=== PATIENT | male | born 1975 | race African-American/Black ===

== ENCOUNTER 2016-12-04 15:00 | Emergency (ER) | payer SELFPAY ==
[~2016-12-04] VITALS: Ht 177.8 cm; Wt 98.0 kg
[~2016-12-04 15:00] MED LIST: ALUM5LIQ PO; FAMO20 PO; NEXI20CA PO
[2016-12-04 15:17] VITALS: BP 144/80; PULSE 70; RESP 16; TEMP 98.7; O2SAT 99
[2016-12-04 16:25] VITALS: BP 135/83; PULSE 62; RESP 16; O2SAT 100
[2016-12-04] MEDS ORDERED: SODIUM CHLOR 0.9% 1000 ML INJ 1,000 ML IV ONE (16:30)
[2016-12-04] MEDS ORDERED: KETOROLAC TROMETHAMINE 30 MG/ML (IVP) VIAL IV PUSH ONE (16:30)
[2016-12-04] MEDS ORDERED: METOCLOPRAMIDE HCL 10 MG/2 ML VIAL IV PUSH ONE (16:30)
[2016-12-04] MEDS ORDERED: SODIUM CHLORIDE 0.9% FLUSH 5 ML FLUSH IVF PRN (16:30)
[2016-12-04 16:33] VITALS: O2SAT 98
--- NOTE | 2016-12-04 16:37 | PD ---
HPI Chief Complaint: Headache Time Seen by Provider: 16:26 Travel History International Travel<30 days: No Contact w/Intl Traveler<30days: No Traveled to known affect area: No History of Present Illness HPI 41-year-old male with history of GERD, here for evaluation of generalized malaise, lightheadedness, intermittent light headache that is frontal, nausea and vomiting. Emesis has been clear. He denies abdominal pain. No diarrhea. He has been out of his omeprazole for the last several days and is complaining of intermittent burning sensation in his chest. No fevers or chills. No dyspnea. PFSH Past Medical History Hx Anticoagulant Therapy: No Cardiovascular Problems: No Chemotherapy: No Cerebrovascular Accident: No Diabetes: No Diminished Hearing: No GERD: Yes Respiratory: No Immunizations Current: No Social History Alcohol Use: Yes ([facility]) Tobacco Use: No Substance Use: No Allergies-Medications (Allergen,Severity, Reaction): Coded Allergies: Penicillin (Verified Allergy, Mild, HIVES, 07/01/15) Reported Meds & Prescriptions Reported Meds & Active Scripts Active Reported Omeprazole 20 Mg Tab 20 Mg PO DAILY Review of Systems Except as stated in HPI: all other systems reviewed are Neg Physical Exam Narrative GENERAL: Well-developed, well-nourished, comfortable, no acute distress. SKIN: Warm and dry. No rash. No pallor. HEAD: Atraumatic. Normocephalic. EYES: Pupils equal and round. No scleral icterus. No injection or drainage. ENT: Mucous membranes pink and moist. NECK: Trachea midline. No JVD. No nuchal rigidity. CARDIOVASCULAR: Regular rate and rhythm. RESPIRATORY: No accessory muscle use. Clear to auscultation. Breath sounds equal bilaterally. GASTROINTESTINAL: Abdomen soft, non-tender, nondistended. MUSCULOSKELETAL: No obvious deformities. No clubbing. No cyanosis. No edema. NEUROLOGICAL: Awake and alert. No obvious cranial nerve deficits. Motor grossly within normal limits. Normal speech. PSYCHIATRIC: Appropriate mood and affect; insight and judgment normal. Data Data Last Documented VS Vital Signs Date Time Temp Pulse Resp B/P Pulse Ox O2 Delivery O2 Flow Rate FiO2 12/04/16 17:30 62 16 100 Room Air 12/04/16 17:25 132/84 12/04/16 15:17 98.7 Orders Electrocardiogram (12/04/16 16:30) Ckmb (Isoenzyme) Profile (12/04/16 16:30) Complete Blood Count With Diff (12/04/16 16:30) Comprehensive Metabolic Panel (12/04/16 16:30) Magnesium (Mg) (12/04/16 16:30) Prothrombin Time / Inr (Pt) (12/04/16 16:30) Act Partial Throm Time (Ptt) (12/04/16 16:30) Troponin I (12/04/16 16:30) Lipase (12/04/16 16:30) Chest, Single Ap (12/04/16 16:30) Ecg Monitoring (12/04/16 16:30) Iv Access Insert/Monitor (12/04/16 16:30) Oximetry (12/04/16 16:30) Sodium Chloride 0.9% Flush (Ns Flush) (12/04/16 16:30) Ct Brain W/O Iv Contrast(Rout) (12/04/16 ) Sodium Chlor 0.9% 1000 Ml Inj (Ns 1000 M (12/04/16 16:30) Metoclopramide Inj (Reglan Inj) (12/04/16 16:30) Ketorolac Inj (Toradol Inj) (12/04/16 16:30) Influenzae A/B Antigen (12/04/16 16:35) Pantoprazole Inj (Protonix Inj) (12/04/16 16:45) Al-Mag Hy-Si 40-40-4 Mg/Ml Liq (Mag-Al P (12/04/16 16:45) Lidocaine 2% Viscous (Xylocaine 2% Visco (12/04/16 16:45) CKMB (12/04/16 16:41) CKMB% (12/04/16 16:41) Labs Laboratory Tests Test 12/04/16 16:41 White Blood Count 10.2 TH/MM3 Red Blood Count 5.21 MIL/MM3 Hemoglobin 14.8 GM/DL Hematocrit 46.5 % Mean Corpuscular Volume 89.3 FL Mean Corpuscular Hemoglobin 28.4 PG Mean Corpuscular Hemoglobin 31.8 % Concent Red Cell Distribution Width 12.6 % Platelet Count 175 TH/MM3 Mean Platelet Volume 9.5 FL Neutrophils (%) (Auto) 71.2 % Lymphocytes (%) (Auto) 22.3 % Monocytes (%) (Auto) 5.0 % Eosinophils (%) (Auto) 0.6 % Basophils (%) (Auto) 0.9 % Neutrophils # (Auto) 7.2 TH/MM3 Lymphocytes # (Auto) 2.3 TH/MM3 Monocytes # (Auto) 0.5 TH/MM3 Eosinophils # (Auto) 0.1 TH/MM3 Basophils # (Auto) 0.1 TH/MM3 CBC Comment DIFF FINAL Differential Comment Prothrombin Time 11.1 SEC Prothromb Time International 1.0 RATIO Ratio Activated Partial 24.6 SEC Thromboplast Time Sodium Level 139 MEQ/L Potassium Level 4.0 MEQ/L Chloride Level 103 MEQ/L Carbon Dioxide Level 28.0 MEQ/L Anion Gap 8 MEQ/L Blood Urea Nitrogen 15 MG/DL Creatinine 1.10 MG/DL Estimat Glomerular Filtration 89 ML/MIN Rate Random Glucose 95 MG/DL Calcium Level 9.3 MG/DL Magnesium Level 2.1 MG/DL Total Bilirubin 0.3 MG/DL Aspartate Amino Transf 31 U/L (AST/SGOT) Alanine Aminotransferase 42 U/L (ALT/SGPT) Alkaline Phosphatase 46 U/L Total Creatine Kinase 849 U/L Creatine Kinase MB 8.0 NG/ML Creatine Kinase MB % 0.9 % Troponin I LESS THAN 0.02 NG/ML Total Protein 7.9 GM/DL Albumin 4.0 GM/DL Lipase 94 U/L MDM Medical Decision Making Medical Screen Exam Complete: Yes Emergency Medical Condition: Yes Interpretation(s) EKG: Sinus, rate 59, left axis deviation, RVH, no acute ischemic abnormality. Differential Diagnosis Viral illness, gastritis, peptic ulcer disease, GERD, ACS, intracranial abnormality, metabolic abnormality, SAH/meningitis/encephalitis unlikely. Narrative Course Initial vital signs show heart rate 70, blood pressure 144/80, pulse ox 99% on room air, oral temp of 98.7F. CBC is unremarkable CMP is unremarkable. Cardiac enzymes are negative. Total CK is slightly elevated at 849. Lipase is 94. Influenza is negative. CT head: Normal exam. Chest x-ray: Suspected minimal left base atelectasis. The patient was given a liter of normal saline IV, IV Reglan, IV Toradol, GI cocktail, IV Protonix, and is feeling much better. He does not have a headache. I do not suspect SAH/meningitis/encephalitis. He is likely suffering from a viral illness. I do not believe his symptoms are cardiopulmonary in nature either. He is stable for discharge home with outpatient follow-up with his primary care physician this week. He was informed on when to return to the emergency department. He verbalizes understanding and agreement with plan. Diagnosis Primary Impression: Nausea and vomiting Qualified Code: R11.2 - Non-intractable vomiting with nausea, unspecified vomiting type Additional Impression: Malaise Referrals: Primary Care Physician 3 days Additional Instructions: Follow-up with your primary care physician this week. Stay hydrated with plenty of fluids. Return to the emergency room for worsening symptoms or any other concerns. Scripts Pantoprazole (Protonix)40 Mg Tab40 Mg PO DAILY #30 TAB Ref 0 Prov:Sergei Posada MD 12/04/16 Ondansetron Odt (Zofran Odt)4 Mg Tab4 Mg SL Q8HR PRN (Nausea/Vomiting) #20 TAB Ref 0 Prov:Sergei Posada MD 12/04/16 Disposition: 01 DISCHARGE HOME Condition: Stable Sergei Posada MD Dec 04, 2016 16:37
[2016-12-04] MEDS ORDERED: OMEP20TA PO (16:40)
[2016-12-04] MEDS ORDERED: ALUMINUM/MAGNESIUM/SIMETH 30 ML CUP PO ONE (16:45)
[2016-12-04] MEDS ORDERED: PANTOPRAZOLE SODIUM 40 MG VIAL IV PUSH ONE (16:45)
[2016-12-04] MEDS ORDERED: LIDOCAINE VISCOUS 2% SOLN 15 ML UDC PO ONE (16:45)
[2016-12-04 16:54] LABS: AUTOMATED NEUTROPHIL # 7.2 TH/MM3 (1.8-7.7); BASOPHIL # 0.1 TH/MM3 (0-0.2); BASOPHIL % 0.9 % (0.0-2.0); EOSINOPHIL # 0.1 TH/MM3 (0-0.4); EOSINOPHIL % 0.6 % (0.0-4.0); HEMATOCRIT 46.5 % (39.0-51.0); HEMO FLAGS DIFF FINAL; LYMPH % 22.3 % (9.0-44.0); LYMPHOCYTE # 2.3 TH/MM3 (1.0-4.8); MEAN CELL VOLUME 89.3 FL (80.0-100.0); MEAN CORPUSCULAR HEMOGLOBIN 28.4 PG (27.0-34.0); MEAN CORPUSCULAR HGB CONC 31.8 % (32.0-36.0); NEUT % 71.2 % (16.0-70.0); PLATELET COUNT 175 TH/MM3 (150-450); RED BLOOD COUNT 5.21 MIL/MM3 (4.50-5.90); RED CELL DISTRIBUTION WIDTH 12.6 % (11.6-17.2); WHITE BLOOD COUNT 10.2 TH/MM3 (4.0-11.0)
[2016-12-04 17:10] LABS: CHLORIDE 103 MEQ/L (98-107); SODIUM (NA) 139 MEQ/L (136-145)
[2016-12-04 17:12] LABS: APTT (PATIENT) 24.6 SEC (24.3-30.1); PROTHROMBIN TIME - PATIENT 11.1 SEC (9.8-11.6)
[2016-12-04 17:15] LABS: ANION GAP 8 MEQ/L (5-15); BLOOD UREA NITROGEN 15 MG/DL (7-18); MAGNESIUM 2.1 MG/DL (1.5-2.5)
--- NOTE | 2016-12-04 17:17 | RADHPO ---
EXAM DATE/TIME: 12/04/2016 16:53 [facility] COMPARISON: No previous studies available for comparison. INDICATIONS : Cephalgia. Nausea. Weakness. RADIATION DOSE: 62.40 CTDIvol (mGy) MEDICAL HISTORY : None SURGICAL HISTORY : None. ENCOUNTER: Initial ACUITY: 1 day PAIN SCALE: 0/10 LOCATION: cranial TECHNIQUE: Multiple contiguous axial images were obtained of the head. Using automated exposure control and adj ustment of the mA and/or kV according to patient size, radiation dose was kept as low as reasonably a chievable to obtain optimal diagnostic quality images. FINDINGS: CEREBRUM: The ventricles are normal for age. No evidence of midline shift, mass lesion, hemorrhage or acute in farction. No extra-axial fluid collections are seen. POSTERIOR FOSSA: The cerebellum and brainstem are intact. The 4th ventricle is midline. The cerebellopontine angle i s unremarkable. EXTRACRANIAL: The visualized portion of the orbits is intact. SKULL: The calvaria is intact. No evidence of skull fracture. CONCLUSION: Normal examination. Srikanth Allen MD on December 04, 2016 at 17:15 Board Certified Radiologist. This report was verified electronically.
[2016-12-04 17:18] LABS: ALT (GPT) 42 U/L (12-78); AST (GOT) 31 U/L (15-37); GLOMERULAR FILTRATION RATE 89 ML/MIN (>89)
[2016-12-04 17:19] LABS: TOTAL BILIRUBIN ADULT 0.3 MG/DL (0.2-1.0)
[2016-12-04 17:21] LABS: ALKALINE PHOSPHATASE 46 U/L (45-117); CREATINE KINASE 849 U/L (39-308)
[2016-12-04 17:25] VITALS: BP 132/84; PULSE 64; RESP 16; O2SAT 99
--- NOTE | 2016-12-04 17:34 | RADHPO ---
EXAM DATE/TIME: 12/04/2016 17:24 [facility] COMPARISON: No previous studies available for comparison. INDICATIONS : Dizziness and weakness. Chest pain. MEDICAL HISTORY : None. SURGICAL HISTORY : None. ENCOUNTER: Initial ACUITY: 1 day PAIN SCORE: 1/10 LOCATION: Bilateral chest FINDINGS: The heart size is normal. There is minimal suspected atelectasis at the left base. The right lung is clear. No effusion is seen. CONCLUSION: Suspected minimal left base atelectasis. Srikanth Allen MD on December 04, 2016 at 17:32 Board Certified Radiologist. This report was verified electronically.
[2016-12-04] MEDS ORDERED: PROT40TA PO (17:40)
[2016-12-04] MEDS ORDERED: ZOFR4TAB3 SL (17:40)
--- NOTE | 2016-12-05 20:10 | EKG ---
Date Performed: 12/04/2016 Time Performed: 16:44:22 PTAGE: 41 years EKG: Sinus bradycardia Left axis Abnormal ECG PREVIOUS TRACING : 06/27/2015 19.32 Compared to prior tracing no significant change DOCTOR: Amilcar Adamson Interpretating Date/Time 12/05/2016 20:09:51
== END 2016-12-04 18:08 | disposition home or self-care (01) ==
LOC: PHED 15:00
DX: R11.2 Nausea with vomiting, unspecified (principal); R53.81 Other malaise; R00.1 Bradycardia, unspecified; R51 Headache; K21.9 Gastro-esophageal reflux disease without esophagitis
CPT/HCPCS: 70450; 71010; 80053; 82550; 82552; 83690; 83735; 84484; 85025; 85610; 85730; 87804; 93005; 96361; 96374; 96375; 99284; C9113; J1885; J2765; J7030

== ENCOUNTER 2017-02-08 22:41 | Emergency (ER) | payer SELFPAY ==
[~2017-02-08] VITALS: Ht 180.3 cm; Wt 97.7 kg
[~2017-02-08 22:41] MED LIST changes: -ALUM5LIQ PO; -FAMO20 PO; -NEXI20CA PO; +OMEP20TA PO; +PROT40TA PO; +ZOFR4TAB3 SL
[2017-02-08 22:46] VITALS: BP 134/88; PULSE 71; RESP 16; TEMP 98.3; O2SAT 99
[2017-02-08] MEDS ORDERED: ALUMINUM/MAGNESIUM/SIMETH 30 ML CUP PO ONE (23:30)
[2017-02-08] MEDS ORDERED: LIDOCAINE VISCOUS 2% SOLN 15 ML UDC PO ONE (23:30)
[2017-02-08] MEDS ORDERED: BACT800T5 PO (23:38)
[2017-02-08] MEDS ORDERED: FLUT1SPR5 EACH NARE (23:38)
--- NOTE | 2017-02-08 23:48 | PD ---
HPI Chief Complaint: Headache Time Seen by Provider: 23:06 Travel History International Travel<30 days: No Contact w/Intl Traveler<30days: No Traveled to known affect area: No History of Present Illness HPI The patient is a 41-year-old male that complains of epigastric pain for 4 days. He has a history of GERD and takes Protonix for this. He is taking the Protonix correctly for the last 2 weeks. He also has a headache for 4 days. He point's around the sinuses and states that Dr. Warren gave him Flonase and Bactrim for the same type of headache and it worked. PFSH Past Medical History Hx Anticoagulant Therapy: No Cardiovascular Problems: No Chemotherapy: No Cerebrovascular Accident: No Diabetes: No Diminished Hearing: No GERD: Yes Respiratory: No Immunizations Current: No Social History Alcohol Use: Yes (OCC) Tobacco Use: No Substance Use: No Allergies-Medications (Allergen,Severity, Reaction): Coded Allergies: Penicillin (Verified Allergy, Mild, HIVES, 07/01/15) Reported Meds & Prescriptions Reported Meds & Active Scripts Active Bactrim DS (Sulfamethoxazole-Trimethoprim) 800-160 Mg Tab 1 Tab PO BID Flonase Nasal [place] (Fluticasone Nasal [place]) 50 Mcg/Act [place] 100 Mcg EACH NARE BID Protonix (Pantoprazole Sodium) 40 Mg Tab 40 Mg PO DAILY Zofran Odt (Ondansetron Odt) 4 Mg Tab 4 Mg SL Q8HR PRN Reported Omeprazole 20 Mg Tab 20 Mg PO DAILY Review of Systems Except as stated in HPI: all other systems reviewed are Neg Physical Exam Narrative GENERAL: Well-nourished, well-developed patient in slight apparent distress with his headache and epigastric pain. The patient's vital signs are normal. SKIN: Focused skin assessment warm/dry. HEAD: Normocephalic. EYES: No scleral icterus. No injection or drainage. NECK: Supple, trachea midline. No JVD or lymphadenopathy. CARDIOVASCULAR: Regular rate and rhythm without murmurs, gallops, or rubs. RESPIRATORY: Breath sounds equal bilaterally. No accessory muscle use. GASTROINTESTINAL: Abdomen soft, non-tender, nondistended. MUSCULOSKELETAL: No cyanosis, or edema. BACK: Nontender without obvious deformity. No CVA tenderness. ENT: There is no sinus tenderness around the maxillary/frontal sinuses to direct palpation. There is no TMJ tenderness present. Data Data Last Documented VS Vital Signs Date Time Temp Pulse Resp B/P Pulse Ox O2 Delivery O2 Flow Rate FiO2 02/08/17 22:46 98.3 71 16 134/88 99 Orders Al-Mag Hy-Si 40-40-4 Mg/Ml Liq (Mag-Al P (02/08/17 23:30) Lidocaine 2% Viscous (Xylocaine 2% Visco (02/08/17 23:30) MDM Medical Decision Making Medical Screen Exam Complete: Yes Emergency Medical Condition: Yes Medical Record Reviewed: Yes Differential Diagnosis Tension headache, sinus headache, subarachnoid hemorrhagehighly unlikely, GERD , ulcer pain, pancreatitishighly unlikely Narrative Course The patient probably has a tension headache. He feels that he would benefit with Flonase and Bactrim as he did before. Plan: The patient be given Maalox and he should continue taking the Protonix. He should elevate the head of his bed, avoid tight constricting clothes and lose weight. Diagnosis Primary Impression: GERD (gastroesophageal reflux disease) Additional Impressions: Tension headache Sinusitis Additional Instructions: As we discussed, elevate the head of your bed, avoid tight constricting clothes and lose weight. Use liquid Maalox and Mylanta to help stop the burning pain. The Flonase twice daily in both nostrils and the antibiotic is also twice daily for 10 days. Follow-up with your primary care physician next week. Med/Other Pt SpecificInfo: Prescription(s) given Scripts Sulfamethoxazole-Trimethoprim (Bactrim DS)800-160 Mg Tab1 Tab PO BID #20 TAB Ref 0 Prov:Vaughn Patricio MD 02/08/17 Fluticasone Nasal [place] (Flonase Nasal [place])50 Mcg/Act [id number] Mcg EACH NARE BID #1 BOTTLE Ref 1 Prov:Vaughn Patricio MD 02/08/17 Disposition: 01 DISCHARGE HOME Condition: Stable Vaughn Patricio MD February 08, 2017 23:48
== END 2017-02-09 00:02 | disposition home or self-care (01) ==
LOC: PHED 22:41
DX: K21.9 Gastro-esophageal reflux disease without esophagitis (principal); G44.209 Tension-type headache, unspecified, not intractable; J32.9 Chronic sinusitis, unspecified; Z87.19 Personal history of other diseases of the digestive system
CPT/HCPCS: 99283